=== PATIENT | male | born 1990 | race Hispanic/Latino ===

== ENCOUNTER 2017-06-09 09:30 | Emergency (ER) | payer SELFPAY, OTHER ==
[2017-06-09 10:21] LABS: Anion Gap 15 mmol/L (10-20); BUN (Urea Nitrogen) 4 mg/dL (8.9-20.6); Calc. Creatinine Clearance 0 mL/min (70-130); Calcium 8.9 mg/dL (7.8-10.44); Carbon Dioxide 22 mmol/L (22-29); Chloride 106 mmol/L (98-107); Estimated GFR-MDRD Greater than 90
[2017-06-09 10:22] LABS: #Basophils 0.1 thou/uL (0.0-0.2); #Lymphocytes 2.6 thou/uL (1.20-3.40); #Neutrophils 13.9 thou/uL (1.40-6.50); %Basophils 0.4 % (0.0-1.0); %Eosinophils 0.2 % (0.0-10.0); %Monocytes 5.7 % (0.0-10.0); Band 4 % (5-11); Hematocrit 51.2 % (42.0-52.0); Mean Platelet Volume 7.3 fL (7.4-10.4); Neutrophil 76 % (42-75); White Blood Cell (WBC) Count 17.6 thou/uL (4.8-10.8)
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
[2017-06-09] MEDS ORDERED: Adacel (T-DAP) 0.5 ML VIAL ONE (11:18)
[2017-06-09] MEDS ORDERED: Bacitracin Zinc 1 Packet ONE (11:26)
[2017-06-09] MEDS ORDERED: ISOVUE-370 76%-LOCM 1 ML ONE (17:01)
== END 2017-06-09 12:38 | disposition home or self-care (01) ==
LOC: ERS 09:30 → EDBD 09:30 → ERS 12:38
DX: S00.81XA Abrasion of other part of head, initial encounter (principal); F10.129 Alcohol abuse with intoxication, unspecified; V89.2XXA Person injured in unspecified motor-vehicle accident, traffic, initial encounter
CPT/HCPCS: 36415; 70450; 71010; 71260; 72125; 72170; 74177; 80048; 80307; 85025; 90471; 90715; G0390